=== PATIENT | female | born 1975 | race Two or more races ===

== ENCOUNTER 2018-08-27 08:09 | Day surgery (SDC) | payer OTHER ==
[2018-08-27] MEDS ORDERED: NAPROXEN500 MG PO (13:40)
[2018-08-27] MEDS ORDERED: DOXYCYCLINE HY100 M2 PO (13:41)
== END 2018-08-27 16:30 | disposition home or self-care (01) ==
LOC: CIR.AMB 08:09
DX: N85.01 Benign endometrial hyperplasia (principal); D25.0 Submucous leiomyoma of uterus